=== PATIENT | male | born 1930 | race African-American/Black ===

== ENCOUNTER 2020-04-12 07:48 | Inpatient (IN) ==
[2020-04-12] MEDS ORDERED: VANCOMYCIN INJ 1,000 MG in SODIUM CHLORIDE 0.9% 250 ML IV ONE (08:28)
[2020-04-12] MEDS ORDERED: ALBUTEROL/IPRATROPIUM 3 ML NEB RESP TX STA (09:20)
[2020-04-12] MEDS ORDERED: BUPIVACAINE MPF 0.5% /EPI 30 ML VIAL ONE (10:33)
[2020-04-12] MEDS ORDERED: fentaNYL 100 MCG/2 ML VIAL ONE (10:38)
[2020-04-12] MEDS ORDERED: HYDROmorphone 2 MG/1 ML VIAL IV PRN ×2 (12:47→12:49)
[2020-04-12] MEDS ORDERED: LIDOCAINE 2% 5 ML VIAL ONE (12:51)
[2020-04-12] MEDS ORDERED: propofoL 200 MG/20 ML VIAL IV ONE (12:51)
[2020-04-12] MEDS ORDERED: SODIUM CHLORIDE 0.9% 1,000 ML IV ONE (12:51)
[2020-04-12] MEDS ORDERED: PHENYLEPHRINE 1 MG/10 ML SYRINGE IV ONE (12:51)
[2020-04-12] MEDS ORDERED: ETOMIDATE 40 MG/20 ML VIAL IV ONE (12:51)
[2020-04-12] MEDS ORDERED: SEVOFLURANE 1 UNIT/15 MINUTE INH ONE (12:51)
[2020-04-12] MEDS ORDERED: ePHEDrine 50 MG/ML AMP ONE (12:51)
[2020-04-12] MEDS ORDERED: diphenhydrAMINE 50 MG/1 ML VIAL ONE (13:26)
[2020-04-12] MEDS ORDERED: diphenhydrAMINE 50 MG/1 ML VIAL IV ONE (13:39)
[2020-04-12] MEDS ORDERED: HYDROmorphone 2 MG TABLET PO PRN (14:14)
[2020-04-12] MEDS ORDERED: HYDROmorphone 2 MG TABLET ONE (14:19)
[2020-04-12 15:27] VITALS: BP 137/60
== END 2020-04-12 16:00 | DRG 239 ==
LOC: N.SDSINP 07:48
PROVIDERS: ADMIT Surgery; ATTEND Surgery